=== PATIENT | female | born 1975 | race Two or more races ===

== ENCOUNTER 2016-11-20 11:11 | Emergency (ER) | payer SELFPAY ==
[2016-11-20 11:27] VITALS: BP 123/70
--- NOTE | 2016-11-20 12:40 | UC ---
Sam Almanza Salem, scribed for Jessica Villegas MD on 11/20/16 at 1234 . General HPI - HPI Summary HPI Summary: Patient is a 41 y/o female who presents to the with her . Pt has multiple complaints since the last few weeks. She reports dizziness, numbness and tingling in the hands and feet since the past few weeks, and intermittent chest pain (she describes as a shock) since 1000 this morning. PT states cp radiated to her left neck. No current pain. She also reports LOC 3 days ago when coming out of the restroom. She states she did not get hurt from the LOC. Does not know how long lasted. She had a syncope episode last year because of low iron. Pt reports nausea and vomiting as well for the last 3 weeks, but she has not vomited today. She also reports abd pain around hernia and pressure and pain on the right side of her head, neck, and shoulder since this morning. She denies fever, chills, but reports a rash that is now resolved. BM unchanged. no analgesia taken. Pt does not have a PCP. I discussed with pt need for lab work and futher eval -recommend hospital transfer. Pt refuses EMS - Pt is here with who is able to drive her to the ED (pt refuses ambulance). 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 PT able to communicate with me without difficulty. LMP started on October 31 and was normal. She states she may be . Patients medication reviewed this visit. - History of Current Complaint Chief Complaint: UCGeneralIllness Stated Complaint: DIZZINESS,LEFT SIDE HURTING,FELL Time Seen by Provider: 11/20/16 11:40 Hx Obtained From: Patient Onset/Duration: Gradual Onset, Lasting Days Onset Severity: Moderate Current Severity: None Associated Signs & Symptoms: Positive: Abdominal Pain, Chest Pain, Decreased Responsiveness, Headache, Nausea, Vomiting, Weakness. Negative: Diaphoresis - Allergy/Home Medications Allergies/Adverse Reactions: Allergies Allergy/AdvReac Type Severity Reaction Status Date / Time No Known Allergies Allergy Verified 09/17/15 14:47 PMH/Surg Hx/FS Hx/Imm Hx Previously Healthy: Yes Endocrine History Of: Denies: Diabetes Cardiovascular History Of: Reports: Cardiac Disorders - h/o syncope 1 year ago Denies: Hypertension, Congestive Heart Failure GI/ History Of: Denies: Renal Disease - Surgical History Surgical History: Yes Surgery Procedure, Year, and Place: TUBAL /1 - Family History Known Family History: Positive: Other - No CVA. - Social History Alcohol Use: None Substance Use Type: None Smoking Status (MU): Never Smoked Tobacco Review of Systems Constitutional: Fatigue Skin: Negative Eyes: Negative ENT: Negative Respiratory: Negative Cardiovascular: Chest Pain, Other - syncope Gastrointestinal: Negative Genitourinary: Negative Motor: Negative Neurovascular: Negative Musculoskeletal: Negative Neurological: Negative Psychological: Negative All Other Systems Reviewed And Are Negative: Yes Physical Exam Triage Information Reviewed: Yes Appearance: Well-Appearing, No Pain Distress, Well-Nourished Vital Signs: Initial Vital Signs Temp 97.7 F 11/20/16 11:20 Pulse 67 11/20/16 11:20 Resp 16 11/20/16 11:20 BP 123/70 11/20/16 11:20 Pulse Ox 100 11/20/16 11:20 Vital Signs Reviewed: Yes Eye Exam: Normal Eyes: Positive: Conjunctiva Clear, Conjunctiva Inflamed ENT Exam: Normal ENT: Positive: Normal ENT inspection, Hearing grossly normal, TMs normal Dental Exam: Normal Neck exam: Normal Neck: Positive: Supple, Nontender, No Lymphadenopathy Respiratory Exam: Normal Respiratory: Positive: Chest non-tender, Lungs clear, Normal breath sounds, No respiratory distress, No accessory muscle use Cardiovascular Exam: Normal Cardiovascular: Positive: RRR, No Murmur, Pulses Normal Abdominal Exam: Normal Abdomen Description: Positive: Nontender, No Organomegaly, Soft, Other: - abd soft + BS no guarding, no rebound Bowel Sounds: Positive: Present Musculoskeletal Exam: Normal Musculoskeletal: Positive: Strength Intact, ROM Intact Neurological Exam: Normal Neurological: Positive: Alert Psychological Exam: Normal Psychological: Positive: Normal Response To Family Diagnostics - Laboratory Diagnostic Studies Completed/Ordered: Sinus @ 60bpm. No acute ST T changes. Course/Dx - Course Course Of Treatment: Pt presents to the ED through amb triage - pt here with . PT with complex presentation including syncopal episode on Saturday, chest pain with radiation to the neck this morning, ongoing abdominal pain and nausea. Pt does not have PCP. d/w pt transfer to ED for futher eval to include imaging and blood work. Pt decline transfer by EMS -[facility] will take her. spoke with Rochelle Cortez at ED - accepting pt in ED - Differential Dx - Multi-Symptom Provider Diagnoses: chest pain. syncope. abdominal pain - Physician Notifications Discussed Patient Care With: IMANI Carbajal - accepting pt to ED 1230. Discharge - Discharge Plan Condition: Stable Disposition: TRANS HIGHER LVL OF CARE FAC Discharge Disposition Comment: [facility]hel[facility] HWANG The documentation as recorded by the Sam hudson Salem accurately reflects the service I personally performed and the decisions made by , Jessica Villegas MD.
== END 2016-11-20 12:52 | disposition short-term general hospital (02) ==
LOC: UCEAST 11:11
DX: R07.9 Chest pain, unspecified (principal); R55 Syncope and collapse; R10.9 Unspecified abdominal pain
CPT/HCPCS: 93005; 99212; G0463

== ENCOUNTER 2016-11-20 13:07 | Emergency (ER) | payer SELFPAY ==
[2016-11-20] MEDS ORDERED: NS 0.9% 1000 ML* 1,000 ML IV SCH (15:00)
[2016-11-20 15:05] LABS: Urine Bilirubin Negative (Negative); Urine Glucose Negative (Negative); Urine Nitrite Negative (Negative)
[2016-11-20] MEDS ORDERED: NS 0.9% 1000 ML* 1,000 ML IV ONE (15:57)
[2016-11-20 16:00] LABS: BUN/Creatinine Ratio 6.3 (8-20); C Reactive Protein 1.03 mg/L (< 5.00); Calcium 9.1 mg/dL (8.6-10.3); EGFR African American 132.6 (>60); EGFR Non-African American 103.1 (>60); Globulin 3.3 g/dL (2-4); Potassium 3.5 mmol/L (3.5-5.0); Total Bilirubin 0.9 mg/dL (0.2-1.0); Total Protein 7.3 g/dL (6.4-8.9)
[2016-11-20 16:02] LABS: Hematocrit 29 % (35-47); Hemoglobin 8.7 g/dl (12.0-16.0); Mean Corpuscular HGB Conc 30 g/dl (31-36); Mean Corpuscular Hemoglobin 20 pg (27-31); Mean Corpuscular Volume 66 fL (80-97); Mean Platelet Volume 9 um3 (7.4-10.4); Red Blood Count 4.41 10^6/ul (4.0-5.4); Red Cell Distribution Width 19 % (10.5-15); White Blood Count 4.9 10^3/ul (3.5-10.8)
[2016-11-20 16:03] LABS: Add Diff/Slide Review? Slide Review Added; Comments Flag Yes; Troponin I 0.01 ng/mL (<0.04)
[2016-11-20 16:29] LABS: Hypochromasia 2+; Microcytosis 1+
[2016-11-20 16:30] LABS: Add Path Review? YES; TSH (Thyroid Stimulating Horm) 1.3 mcIU/mL (0.34-5.60)
[2016-11-20] MEDS ORDERED: Iohexol 300* (CONTRAST) 10 ML SDV IV ONE (16:48)
[2016-11-20 17:18] LABS: UR Preg Internal Control QC Line Present
--- NOTE | 2016-11-20 17:26 | RAD ---
INDICATION: Lower abdominal pain. COMPARISON: Comparison is made with a prior pelvic ultrasound from April 01, 2014. TECHNIQUE: Multiple real-time transabdominal images of the pelvis were obtained. FINDINGS: The uterus is enlarged and normal in shape and echogenicity. The uterus measured 12.3 x 4.3 x 6.8 cm. The endometrial echo measured 1.4 cm in thickness. The right ovary measured 3.1 x 2.5 x 1.2 cm. The left ovary measured 3.0 x 1.9 x 1.4 cm. There is vascular flow within both ovaries. No free intraperitoneal fluid is seen. IMPRESSION: MILDLY ENLARGED UTERUS OTHERWISE UNREMARKABLE STUDY.
[2016-11-20] MEDS ORDERED: Ferrous Sulfate TAB* 325 MG PO ONE (18:29)
--- NOTE | 2016-11-20 18:35 | RAD ---
INDICATION: Lower abdominal pain. COMPARISON: Comparison is made with a prior CT of the abdomen and pelvis from May 20, 2015 and a prior pelvic ultrasound from November 20, 2016. TECHNIQUE: A CT scan of the abdomen and pelvis was performed with intravenous and oral contrast following intravenous injection of 92 ml of Omnipaque 300 nonionic contrast. Contiguous axial sections were obtained from the lung bases through the symphysis pubis. Images were reconstructed in the coronal and sagittal planes. FINDINGS: There is mild dependent bilateral lower lobe subsegmental atelectasis. No pleural effusion is present. The liver and spleen are within normal limits in size without significant focal abnormality. No calcified gallstones are seen. The pancreas appears to be within normal limits in size. The kidneys and adrenal glands are normal in size. No hydronephrosis is seen. No significant focal renal abnormality is seen. The aorta is normal in caliber and demonstrates homogeneous contrast opacification. No significant enlarged retroperitoneal lymph nodes are seen. The stomach, small and large bowel appear nondistended. The appendix is within normal limits. There is no evidence for diverticulitis or colitis. There is a small anterior abdominal wall hernia in the midline above the periumbilical region containing fat. There is also a small periumbilical hernia containing fat. The uterus is anteverted and mildly enlarged. No free intraperitoneal air or fluid is seen. No significant focal osseous abnormality is seen. IMPRESSION: 1. NO EVIDENCE FOR ACUTE FINDING OR CAUSE FOR THE PATIENT'S ABDOMINAL PAIN IS SEEN. 2. SMALL FAT-CONTAINING ANTERIOR ABDOMINAL WALL HERNIAS. 3. MILDLY ENLARGED UTERUS.
[2016-11-20 19:30] VITALS: BP 119/77
--- NOTE | 2017-01-01 10:36 | ED ---
Preston Almanza Billy, scribed for Andrez Dienro MD on 11/20/16 at 1550 . Complex/Multi-Sys Presentation - HPI Summary HPI Summary: Patient is a 41 year-old female coming to [facility] from [facility] for evaluation of multiple complaints. She reports diffuse abdominal pain secondary to a hernia. She also reports left-sided neck pain that is worse with movement. She has also had intermittent dizziness and numbness in her fingertips for the last 3 weeks, and her fingers feel cold to the touch. She reports nausea and vomiting, no diarrhea. Denies any blood in the stool. Denies any urinary symptoms. She is unsure if her vaccines are UTD. - History Of Current Complaint Chief Complaint: EDGeneral Time Seen by Provider: 11/20/16 14:56 Hx Obtained From: Patient Onset/Duration: Gradual Onset, Lasting Weeks Severity Currently: Moderate Severity Initially: Moderate Aggravating Factor(s): none Alleviating Factor(s): none Associated Signs And Symptoms: Positive: Dizziness, Nausea, Vomiting, Abdominal Pain, Other - neck pain, numbness in fingers - Allergies/Home Medications Allergies/Adverse Reactions: Allergies Allergy/AdvReac Type Severity Reaction Status Date / Time No Known Allergies Allergy Verified 09/17/15 14:47 PMH/Surg Hx/FS Hx/Imm Hx Endocrine/Hematology History: Denies: Hx Diabetes Cardiovascular History: Denies: Hx Congestive Heart Failure, Hx Hypertension History: Denies: Hx Dialysis, Hx Renal Disease - Surgical History Surgery Procedure, Year, and Place: TUBAL /1 - Immunization History Date of Tetanus Vaccine: Unknown Infectious Disease History: No Infectious Disease History: Denies: Traveled Outside the [place] in Last 30 Days - Family History Known Family History: Positive: Other - No CVA. - Social History Alcohol Use: None Hx Substance Use: No Substance Use Type: Reports: None Hx Tobacco Use: No Smoking Status (MU): Never Smoked Tobacco Review of Systems Negative: Fever, Chills Negative: Erythema Negative: Sore Throat Negative: Chest Pain Negative: Shortness Of Breath, Cough Positive: Abdominal Pain, Vomiting, Nausea. Negative: Diarrhea Negative: dysuria, hematuria Positive: Other - neck pain. Negative: Edema Negative: Rash Neurological: Other - dizzy Positive: Numbness - fingers All Other Systems Reviewed And Are Negative: Yes Physical Exam - Summary Physical Exam Summary: Constitutional: Well-developed, Well-nourished, Alert. (-) Distressed Skin: Warm, Dry HENT: Normocephalic; Atraumatic Eyes: Conjunctiva normal Neck: Musculoskeletal ROM normal neck. (-) JVD, (-) Stridor, (-) Tracheal deviation Cardio: Rhythm regular, rate normal, Heart sounds normal; Intact distal pulses; The pedal pulses are 2+ and symmetric. Radial pulses are 2+ and symmetric. (-) Murmur Pulmonary/Chest wall: Effort normal. (-) Respiratory distress, (-) Wheezes, (-) Rales Abd: Soft, Diffusely tender. (-) Distension, (-) Guarding, (-) Rebound Musculoskeletal: (-) Edema Lymph: (-) Cervical adenopathy Neuro: Alert, Oriented x3 Psych: Mood and affect Normal Triage Information Reviewed: Yes Vital Signs On Initial Exam: Initial Vitals Temp Pulse Resp BP Pulse Ox 97.0 F 57 20 112/73 99 11/20/16 13:17 11/20/16 13:17 11/20/16 13:17 11/20/16 13:17 11/20/16 13:17 Vital Signs Reviewed: Yes - Jessica Coma Scale Coma Scale Total: 15 Diagnostics - Vital Signs Vital Signs Temp Pulse Resp BP Pulse Ox 11/20/16 15:30 61 19 103/70 99 11/20/16 15:00 101 18 120/69 80 11/20/16 14:50 22 11/20/16 14:47 111/72 11/20/16 14:45 98 F 60 19 111/72 100 11/20/16 14:12 97.6 F 72 20 108/75 100 11/20/16 13:17 97.0 F 57 20 112/73 99 - Laboratory Lab Results: Lab Results 11/20/16 Range/Units 15:00 Urine Color Yellow Urine Appearance Clear Urine pH 8.0 (5-9) Ur Specific [place] 1.013 (1.010-1.030) Urine Protein Negative (Negative) Urine Ketones Negative (Negative) Urine Blood Negative (Negative) Urine Nitrate Negative (Negative) Urine Bilirubin Negative (Negative) Urine Urobilinogen Negative (Negative) Ur Leukocyte Esterase Negative (Negative) Urine Glucose Negative (Negative) Result Diagrams: 11/20/16 15:25 11/20/16 15:25 Lab Statement: Any lab studies that have been ordered have been reviewed, and results considered in the medical decision making process. - CT abd/pel w CT Interpretation Completed By: Radiologist - 1. NO EVIDENCE FOR ACUTE FINDING OR CAUSE FOR THE PATIENT'S ABDOMINAL PAIN IS SEEN. 2. SMALL FAT-CONTAINING ANTERIOR ABDOMINAL WALL HERNIAS. 3. MILDLY ENLARGED UTERUS. - Ultrasound No standard instances Ultrasound Interpretation Completed By: Radiologist - Pelvic ultrasound: Mildly enlarged uterus, otherwise normal study. - EKG 1328 EKG Interpretation: NSR 60 bpm, no STEMI 1447 EKG Interpretation: NSR 60 bpm, no STEMI Complex Multi-Symp Course/Dx Assessment/Plan: This is a 41 year-old female coming to the ED for evaluation of several complaints, including abdominal pain, neck pain, dizziness, and numbness in her fingers. CT imaging and pelvic ultrasound are negative for any acute findings. Lab results reviewed. Patient was anemic in the ED and was given ferrous sulfate. She was also hydrated with IV fluids. She likely has iron-deficient anemia. We feel that her symptoms are explained by anemia. She is not unstable. She will be discharged home to follow up with PCP and hematology. - Diagnoses Provider Diagnoses: Microcytic anemia, Cervical strain Discharge - Discharge Plan Condition: Stable Disposition: HOME Patient Education Materials: Iron Deficiency Anemia (ED), Cervical Strain (ED) Forms: *Work Release Referrals: [facility] [Outside] Eleonora Hammonds MD [Medical Doctor] - The documentation as recorded by the Preston hudson Billy accurately reflects the service I personally performed and the decisions made by ri, Andrez Dinero MD.
== END 2016-11-20 19:28 | disposition home or self-care (01) ==
LOC: ED 13:07
DX: D50.9 Iron deficiency anemia, unspecified (principal); S16.1XXA Strain of muscle, fascia and tendon at neck level, initial encounter; R42 Dizziness and giddiness; R11.2 Nausea with vomiting, unspecified; M54.2 Cervicalgia; R20.0 Anesthesia of skin; X58.XXXA Exposure to other specified factors, initial encounter; Y93.9 Activity, unspecified; Y92.9 Unspecified place or not applicable; Y99.9 Unspecified external cause status
CPT/HCPCS: 36415; 74177; 76856; 80053; 81003; 81025; 82550; 82553; 83605; 83690; 84443; 84484; 85025; 85060; 85610; 85730; 86140; 93005; 99285; A9270-GY; Q9967

== ENCOUNTER 2016-12-13 20:44 | Emergency (ER) | payer MEDICAID, OTHER ==
[2016-12-13 22:12] LABS: Comments Flag Yes; Hematocrit 27 % (35-47); Hemoglobin 8.2 g/dl (12.0-16.0); Mean Corpuscular HGB Conc 31 g/dl (31-36); Mean Corpuscular Hemoglobin 20 pg (27-31); Mean Platelet Volume 9 um3 (7.4-10.4); Red Blood Count 4.02 10^6/ul (4.0-5.4); Red Cell Distribution Width 20 % (10.5-15); White Blood Count 6.1 10^3/ul (3.5-10.8)
[2016-12-13 22:13] LABS: Mean Corpuscular Volume 67 fL (80-97)
[2016-12-13 22:34] LABS: Albumin 3.6 g/dL (3.2-5.2); BUN/Creatinine Ratio 9.2 (8-20); Calcium 8.8 mg/dL (8.6-10.3); EGFR African American 127.9 (>60); EGFR Non-African American 99.5 (>60); Globulin 3.1 g/dL (2-4); Potassium 3.7 mmol/L (3.5-5.0); Total Bilirubin 0.4 mg/dL (0.2-1.0); Total Protein 6.7 g/dL (6.4-8.9)
[2016-12-13 22:51] LABS: TSH (Thyroid Stimulating Horm) 5.62 mcIU/mL (0.34-5.60)
[2016-12-14 02:34] VITALS: BP 105/67
--- NOTE | 2016-12-14 02:36 | ED ---
Alethea Almanza Rebecca, scribed for Pauly Rea MD on 12/13/16 at 2158 . Syncope/Near Syncope - HPI Summary HPI Summary: Pt is a 41 y/o F who presents to ED c/o recurrent syncopal episodes with LOC, with the most recent being tonight at 1730. Pt reports that for the past 2 months, she has been experiencing syncope with LOC every day. Episode that occurred today lasted approximately 45 minutes. Unsure of whether there was associated head trauma. Sx aggravated by nothing, alleviated by spontaneous resolution. Pt c/o mild CRUZ s/p episode. Denies CP, SOB. Last year, pt experienced a similar bout of syncopal episodes after surgery, which she had diagnosed as being caused by anemia. Reports that 3 weeks ago she was evaluated with a Dx of anemia. States that she has not had a workup for the symptoms started by her PCP as of yet. PCP is with [facility]. - History Of Current Complaint Chief Complaint: EDSyncope Time Seen by Provider: 12/13/16 21:40 Hx Obtained From: Patient Onset/Duration: Resolved Timing: Intermittent Episode Lasting - 45 minutes Context: Loss Of Consciousness Aggravating Factor(s): Nothing Alleviating Factor(s): Spontaneous Resolution Associated Signs And Symptoms: Headache - mild Related History: Similar Episode/Dx as - Previous to episodes of LOC last year - Allergies/Home Medications Allergies/Adverse Reactions: Allergies Allergy/AdvReac Type Severity Reaction Status Date / Time No Known Allergies Allergy Verified 12/13/16 20:57 PMH/Surg Hx/FS Hx/Imm Hx Endocrine/Hematology History: Reports: Hx Anemia Denies: Hx Diabetes Cardiovascular History: Denies: Hx Congestive Heart Failure, Hx Hypertension History: Denies: Hx Dialysis, Hx Renal Disease Neurological History: Reports: Other Neuro Impairments/Disorders - PMHx syncope - Surgical History Surgery Procedure, Year, and Place: TUBAL /1 - Immunization History Date of Tetanus Vaccine: Unknown Infectious Disease History: No Infectious Disease History: Denies: Traveled Outside the [place] in Last 30 Days - Family History Known Family History: Positive: Other - No CVA. - Social History Alcohol Use: None Hx Substance Use: No Substance Use Type: Reports: None Hx Tobacco Use: No Smoking Status (MU): Never Smoked Tobacco Review of Systems Negative: Chest Pain Negative: Shortness Of Breath Positive: Headache - mild , Syncope - Syncopal episodes positive for LOC everyday for the past 2 months, today's lasting 45 minutes All Other Systems Reviewed And Are Negative: Yes Physical Exam - Summary Physical Exam Summary: General: Well appearing, no pain distress Skin: Warm, Skin Color Reflects Adequate Perfusion, Dry Eyes: EOMI, DAVE ENT: Pharynx normal, TMs normal Neck: Supple, nontender Respiratory: CTA, breath sounds present, no rhonchi, no wheezes, no rales Cardiovascular: RRR, no murmur, no rub, no gallop Abdomen: Soft, nontender, Non-distended, no guarding, no rebound Bowel: Present Musculoskeletal: LISANDRO, No edema Neuro: Sensory/motor intact, A&Ox3, CN intact 2-12 Psych: Affect/mood appropriate Triage Information Reviewed: Yes Vital Signs On Initial Exam: Initial Vitals Temp Pulse Resp BP Pulse Ox 98.5 F 81 16 119/78 100 12/13/16 20:50 12/13/16 20:50 12/13/16 20:50 12/13/16 20:50 12/13/16 20:50 Vital Signs Reviewed: Yes Diagnostics - Vital Signs Vital Signs Temp Pulse Resp BP Pulse Ox 12/13/16 20:55 98.5 F 81 16 119/78 100 12/13/16 20:50 98.5 F 81 16 119/78 100 - Laboratory Lab Results: Lab Results 12/13/16 12/13/16 12/13/16 Range/Units 22:03 22:03 22:03 WBC 6.1 (3.5-10.8) 10^3/ul RBC 4.02 (4.0-5.4) 10^6/ul Hgb 8.2 L (12.0-16.0) g/dl Hct 27 L (35-47) % MCV 67 L (80-97) fL MCH 20 L (27-31) pg MCHC 31 (31-36) g/dl RDW 20 H (10.5-15) % Plt Count 233 (150-450) 10^3/ul MPV 9 (7.4-10.4) um3 Neut % (Auto) 45.2 (38-83) % Lymph % (Auto) 40.1 (25-47) % [place] % (Auto) 10.8 H (1-9) % Eos % (Auto) 2.7 (0-6) % Baso % (Auto) 1.2 (0-2) % Absolute Neuts (auto) 2.7 (1.5-7.7) 10^3/ul Absolute Lymphs (auto) 2.4 (1.0-4.8) 10^3/ul Absolute Monos (auto) 0.7 (0-0.8) 10^3/ul Absolute Eos (auto) 0.2 (0-0.6) 10^3/ul Absolute Basos (auto) 0.1 (0-0.2) 10^3/ul Absolute Nucleated RBC 0 10^3/ul Nucleated RBC % 0.1 Sodium 137 (133-145) mmol/L Potassium 3.7 (3.5-5.0) mmol/L Chloride 104 (101-111) mmol/L Carbon Dioxide 28 (22-32) mmol/L Anion Gap 5 (2-11) mmol/L BUN 6 (6-24) mg/dL Creatinine 0.65 (0.51-0.95) mg/dL Est GFR ( Amer) 127.9 (>60) Est GFR (Non-Af Amer) 99.5 (>60) BUN/Creatinine Ratio 9.2 (8-20) Glucose 95 (70-100) mg/dL Lactic Acid 0.5 (0.5-2.0) mmol/L Calcium 8.8 (8.6-10.3) mg/dL Magnesium 2.0 (1.9-2.7) mg/dL Total Bilirubin 0.40 (0.2-1.0) mg/dL AST 15 (13-39) U/L ALT 13 (7-52) U/L Alkaline Phosphatase 37 (34-104) U/L Troponin I 0.00 (<0.04) ng/mL Total Protein 6.7 (6.4-8.9) g/dL Albumin 3.6 (3.2-5.2) g/dL Globulin 3.1 (2-4) g/dL Albumin/Globulin Ratio 1.2 (1-3) TSH 5.62 H (0.34-5.60) mcIU/mL Result Diagrams: 12/13/16 22:03 12/13/16 22:03 Lab Statement: Any lab studies that have been ordered have been reviewed, and results considered in the medical decision making process. - CT Brain CT CT Interpretation: No Acute Changes - Normal brain. No acute intracranial abnormality. No hemorrhage. No visible infarct or mass. Osseous structures are intact. CT Interpretation Completed By: Radiologist - EKG 0014 Cardiac Rate: NL - 64 bpm EKG Rhythm: Sinus Rhythm EKG Interpretation: No Q waves, no ST elevations Course/Dx Course Of Treatment: 41 yo female with 3 mos history of syncope that is increasing, pt had many questions about findings on previous studies ( atelectasis, hernias) with normal ct brain and labs (pt has chronic anemia, with no stool on rectal done here) pt with normal orthostatic vs. Pt encouraged to f/u with pmd for sycnope work up - Diagnoses Provider Diagnoses: Syncope Discharge - Discharge Plan Condition: Stable Disposition: HOME Patient Education Materials: Syncope (ED) Referrals: [facility] [place] [facility]FERRAL [Outside] - 2 Days Additional Instructions: Return to ED for any new or worsening symptoms. The documentation as recorded by the Alethea hudson Rebecca accurately reflects the service I personally performed and the decisions made by , Pauly Rea MD.
--- NOTE | 2016-12-14 08:08 | RAD ---
INDICATION: Syncope. COMPARISON: There are no prior studies available for comparison. TECHNIQUE: Contiguous axial sections of the brain were obtained from the skull base to the vertex without contrast. FINDINGS: The ventricles, cisterns and sulci are within normal limits. No significant focal abnormality or mass effect is seen. There is no evidence for hemorrhage. No significant focal osseous abnormality is seen. The visualized portion of the paranasal sinuses and mastoid air cells appear clear. IMPRESSION: NO EVIDENCE FOR GROSS ACUTE INFARCT, MASS EFFECT OR HEMORRHAGE.
== END 2016-12-14 02:47 | disposition home or self-care (01) ==
LOC: ED 20:44
DX: R55 Syncope and collapse (principal); R51 Headache
CPT/HCPCS: 36415; 70450; 80053; 83605; 83735; 84443; 84484; 85025; 93005; 99282

== ENCOUNTER → 2016-12-25 12:39 | Emergency (ER) | payer MEDICAID ==
[~2016-12-25 12:39] MED LIST: Aspirin Low Dose CHEW TAB* 81 MG PO ONE; Omeprazole CAP* 20 MG PO ONE; Pantoprazole TAB (NF) 40 MG TAB PO ONE
[2016-12-25 13:18] VITALS: BP 108/73
[2016-12-25 13:27] LABS: Hematocrit 31 % (35-47); Hemoglobin 9.4 g/dl (12.0-16.0); Mean Corpuscular HGB Conc 31 g/dl (31-36); Mean Corpuscular Hemoglobin 21 pg (27-31); Mean Platelet Volume 9 um3 (7.4-10.4); Red Blood Count 4.56 10^6/ul (4.0-5.4); Red Cell Distribution Width 21 % (10.5-15); White Blood Count 6.2 10^3/ul (3.5-10.8)
[2016-12-25 13:31] LABS: Comments Flag Yes; Mean Corpuscular Volume 67 fL (80-97)
[2016-12-25 13:42] LABS: ALT 13 U/L (7-52); AST 15 U/L (13-39); Albumin 4.1 g/dL (3.2-5.2); Alkaline Phosphatase 36 U/L (34-104); Anion Gap 4 mmol/L (2-11); Blood Urea Nitrogen 9 mg/dL (6-24); CO2 Carbon Dioxide 30 mmol/L (22-32); Calcium 9.6 mg/dL (8.6-10.3); Chloride 103 mmol/L (101-111); Creatine Kinase 78 U/L (10-223); EGFR African American 119.4 (>60); EGFR Non-African American 92.9 (>60); Globulin 3.3 g/dL (2-4); Glucose 84 mg/dL (70-100); Magnesium 2.2 mg/dL (1.9-2.7); Potassium 3.8 mmol/L (3.5-5.0); Sodium 137 mmol/L (133-145); Total Protein 7.4 g/dL (6.4-8.9)
--- NOTE | 2016-12-25 14:14 | RAD ---
Indication: Chest pain. 2 views of the chest including dual energy PA views demonstrate no mediastinal shift. Heart is of normal size and configuration. Lung martinez appear clear. IMPRESSION: No active cardiopulmonary disease is noted.
[2016-12-25 14:22] LABS: T4 6.61 mcg/mL (6.09-12.23)
[2016-12-25 14:23] LABS: TSH (Thyroid Stimulating Horm) 1.25 mcIU/mL (0.34-5.60)
[2016-12-25 15:20] LABS: Urine Bilirubin Negative (Negative); Urine Glucose Negative (Negative); Urine Nitrite Negative (Negative)
--- NOTE | 2016-12-25 18:37 | ED ---
Preston Almanza Billy, scribed for Alex Winchester MD on 12/25/16 at 1313 . HPI Chest Pain - HPI Summary HPI Summary: Patient is a 41 year-old female coming to [facility] for evaluation of sternal chest pain since yesterday. The pain radiates up her chest to the throat. Yesterday, the pain was a burning sensation, but today she feels pressure. Severity 9/10. She also reports a headache, nausea, shortness of breath. Furthermore, she has pain in her leg and twitching in her left lip. She has a history of anemia and syncope. - History of Current Complaint Chief Complaint: EDChestPainROMI Time Seen by Provider: 12/25/16 12:47 Hx Obtained From: Patient Onset/Duration: Started Days Ago Timing: Constant Initial Severity: Moderate Current Severity: Moderate Pain Intensity: 9 Pain Scale Used: 0-10 Numeric Chest Pain Location: Mid Sternal Chest Pain Radiates: Yes Chest Pain Radiates To:: Other - radiates up the sternum to the throat Character: Burning, Pressure/Squeezing Aggravating Factor(s): Nothing Alleviating Factor(s): Nothing Associated Signs and Symptoms: Positive: Chest Pain, Headaches, Shortness of Breath, Other: - leg pain; twitching lip - Allergy/Home Medications Allergies/Adverse Reactions: Allergies Allergy/AdvReac Type Severity Reaction Status Date / Time No Known Allergies Allergy Verified 12/13/16 20:57 PMH/Surg Hx/FS Hx/Imm Hx Endocrine/Hematology History: Reports: Hx Anemia Denies: Hx Diabetes Cardiovascular History: Denies: Hx Congestive Heart Failure, Hx Hypertension History: Denies: Hx Dialysis, Hx Renal Disease Neurological History: Reports: Other Neuro Impairments/Disorders - PMHx syncope - Surgical History Surgery Procedure, Year, and Place: TUBAL /1 - Immunization History Date of Tetanus Vaccine: Unknown Infectious Disease History: Denies: Traveled Outside the [place] in Last 30 Days - Family History Known Family History: Negative: Cardiac Disease, Hypertension, Diabetes Family History: Patient reports that her parents and siblings are alive and healthy. - Social History Alcohol Use: None Hx Substance Use: No Substance Use Type: Reports: None Hx Tobacco Use: No Smoking Status (MU): Never Smoked Tobacco Review of Systems Constitutional: Other - twitching lip Positive: Chest Pain Positive: Shortness Of Breath Positive: Nausea Positive: Myalgia - leg pain Positive: Headache All Other Systems Reviewed And Are Negative: Yes Physical Exam - Summary Physical Exam Summary: VITAL SIGNS: Reviewed. GENERAL: Patient is a well-developed and nourished female who is lying comfortable in the stretcher. Patient is not in any acute respiratory distress. HEAD AND FACE: No signs of trauma. No ecchymosis, hematomas or skull depressions. No sinus tenderness. EYES: PERRLA, EOMI x 2, No injected conjunctiva, no nystagmus. EARS: Hearing grossly intact. Ear canals and tympanic membranes are within normal limits. MOUTH: Oropharynx within normal limits. NECK: Supple, trachea is midline, no adenopathy, no JVD, no carotid bruit, no c- spine tenderness, neck with full ROM. CHEST: Symmetric, no tenderness at palpation LUNGS: Clear to auscultation bilaterally. No wheezing or crackles. CVS: Regular rate and rhythm, S1 and S2 present, no murmurs or gallops appreciated. ABDOMEN: Soft, non-tender. No signs of distention. No rebound no guarding, and no masses palpated. Bowel sounds are normal. EXTREMITIES: FROM in all major joints, no edema, no cyanosis or clubbing. NEURO: Alert and oriented x 3. No acute neurological deficits. Speech is normal and follows commands. SKIN: Dry and warm Triage Information Reviewed: Yes Vital Signs On Initial Exam: Initial Vitals Temp Pulse Resp BP Pulse Ox 98.8 F 81 20 121/74 100 12/25/16 12:43 12/25/16 12:43 12/25/16 12:43 12/25/16 12:43 12/25/16 12:43 Vital Signs Reviewed: Yes Diagnostics - Vital Signs Vital Signs Temp Pulse Resp BP Pulse Ox 12/25/16 12:43 98.8 F 81 20 121/74 100 - Laboratory Lab Results: Lab Results 12/25/16 12/25/16 12/25/16 Range/Units 13:20 13:20 13:20 WBC 6.2 (3.5-10.8) 10^3/ul RBC 4.56 (4.0-5.4) 10^6/ul Hgb 9.4 L (12.0-16.0) g/dl Hct 31 L (35-47) % MCV 67 L (80-97) fL MCH 21 L (27-31) pg MCHC 31 (31-36) g/dl RDW 21 H (10.5-15) % Plt Count 196 (150-450) 10^3/ul MPV 9 (7.4-10.4) um3 Neut % (Auto) 48.3 (38-83) % Lymph % (Auto) 37.3 (25-47) % [place] % (Auto) 11.6 H (1-9) % Eos % (Auto) 1.5 (0-6) % Baso % (Auto) 1.3 (0-2) % Absolute Neuts (auto) 3.0 (1.5-7.7) 10^3/ul Absolute Lymphs (auto) 2.3 (1.0-4.8) 10^3/ul Absolute Monos (auto) 0.7 (0-0.8) 10^3/ul Absolute Eos (auto) 0.1 (0-0.6) 10^3/ul Absolute Basos (auto) 0.1 (0-0.2) 10^3/ul Absolute Nucleated RBC 0 10^3/ul Nucleated RBC % 0.1 Sodium 137 (133-145) mmol/L Potassium 3.8 (3.5-5.0) mmol/L Chloride 103 (101-111) mmol/L Carbon Dioxide 30 (22-32) mmol/L Anion Gap 4 (2-11) mmol/L BUN 9 (6-24) mg/dL Creatinine 0.69 (0.51-0.95) mg/dL Est GFR ( Amer) 119.4 (>60) Est GFR (Non-Af Amer) 92.9 (>60) BUN/Creatinine Ratio 13.0 (8-20) Glucose 84 (70-100) mg/dL Lactic Acid 0.9 (0.5-2.0) mmol/L Calcium 9.6 (8.6-10.3) mg/dL Magnesium 2.2 (1.9-2.7) mg/dL Total Bilirubin 0.70 (0.2-1.0) mg/dL AST 15 (13-39) U/L ALT 13 (7-52) U/L Alkaline Phosphatase 36 (34-104) U/L Total Creatine Kinase 78 (10-223) U/L CK-MB (CK-2) 0.5 L (0.6-6.3) ng/mL Troponin I 0.00 (<0.04) ng/mL B-Natriuretic Peptide ( - 100) pg/mL Total Protein 7.4 (6.4-8.9) g/dL Albumin 4.1 (3.2-5.2) g/dL Globulin 3.3 (2-4) g/dL Albumin/Globulin Ratio 1.2 (1-3) TSH 1.25 (0.34-5.60) mcIU/mL Thyroxine (T4) 6.61 (6.09-12.23) mcg/mL Beta HCG, Quant < 0.60 mIU/mL Urine Color Urine Appearance Urine pH (5-9) Ur Specific [place] (1.010-1.030) Urine Protein (Negative) Urine Ketones (Negative) Urine Blood (Negative) Urine Nitrate (Negative) Urine Bilirubin (Negative) Urine Urobilinogen (Negative) Ur Leukocyte Esterase (Negative) Urine Glucose (Negative) 12/25/16 12/25/16 12/25/16 Range/Units 13:20 15:11 16:05 WBC (3.5-10.8) 10^3/ul RBC (4.0-5.4) 10^6/ul Hgb (12.0-16.0) g/dl Hct (35-47) % MCV (80-97) fL MCH (27-31) pg MCHC (31-36) g/dl RDW (10.5-15) % Plt Count (150-450) 10^3/ul MPV (7.4-10.4) um3 Neut % (Auto) (38-83) % Lymph % (Auto) (25-47) % [place] % (Auto) (1-9) % Eos % (Auto) (0-6) % Baso % (Auto) (0-2) % Absolute Neuts (auto) (1.5-7.7) 10^3/ul Absolute Lymphs (auto) (1.0-4.8) 10^3/ul Absolute Monos (auto) (0-0.8) 10^3/ul Absolute Eos (auto) (0-0.6) 10^3/ul Absolute Basos (auto) (0-0.2) 10^3/ul Absolute Nucleated RBC 10^3/ul Nucleated RBC % Sodium (133-145) mmol/L Potassium (3.5-5.0) mmol/L Chloride (101-111) mmol/L Carbon Dioxide (22-32) mmol/L Anion Gap (2-11) mmol/L BUN (6-24) mg/dL Creatinine (0.51-0.95) mg/dL Est GFR ( Amer) (>60) Est GFR (Non-Af Amer) (>60) BUN/Creatinine Ratio (8-20) Glucose (70-100) mg/dL Lactic Acid (0.5-2.0) mmol/L Calcium (8.6-10.3) mg/dL Magnesium (1.9-2.7) mg/dL Total Bilirubin (0.2-1.0) mg/dL AST (13-39) U/L ALT (7-52) U/L Alkaline Phosphatase (34-104) U/L Total Creatine Kinase (10-223) U/L CK-MB (CK-2) (0.6-6.3) ng/mL Troponin I 0.01 (<0.04) ng/mL B-Natriuretic Peptide 27 ( - 100) pg/mL Total Protein (6.4-8.9) g/dL Albumin (3.2-5.2) g/dL Globulin (2-4) g/dL Albumin/Globulin Ratio (1-3) TSH (0.34-5.60) mcIU/mL Thyroxine (T4) (6.09-12.23) mcg/mL Beta HCG, Quant mIU/mL Urine Color Yellow Urine Appearance Cloudy Urine pH 8.0 (5-9) Ur Specific [place] 1.004 L (1.010-1.030) Urine Protein Negative (Negative) Urine Ketones Negative (Negative) Urine Blood Negative (Negative) Urine Nitrate Negative (Negative) Urine Bilirubin Negative (Negative) Urine Urobilinogen Negative (Negative) Ur Leukocyte Esterase Negative (Negative) Urine Glucose Negative (Negative) Result Diagrams: 12/25/16 13:20 12/25/16 13:20 Lab Statement: Any lab studies that have been ordered have been reviewed, and results considered in the medical decision making process. - Radiology CXR Xray Interpretation: No Acute Changes Radiology Interpretation Completed By: Radiologist - EKG 1256 EKG Interpretation: NSR 67 bpm, no STEMI Chest Pain Course/Dx - Course Assessment/Plan: Patient is a 41 year-old female coming to [facility] for evaluation of sternal chest pain since yesterday. The pain radiates up her chest to the throat. Yesterday, the pain was a burning sensation, but today she feels pressure. Severity 9/10. She also reports a headache, nausea, shortness of breath. Furthermore, she has pain in her leg and twitching in her left lip. She has a history of anemia and syncope. Test results WNL except for hypochromic microcytic anemia for which the patient takes iron. Troponin is 0.00. UA is negative. CXR shows no acute pathology. In the ED course, the patient was given an ASA and omeprazole. Her symptoms have resolved. She is feeling better. She is A&Ox3. She will be discharged home to follow up with PCP. I discussed all the findings and test results with the patient. Patient was instructed to return to the emergency room immediately if any of the symptoms return or worsens. Plan of care was discussed with the patient and understands and agrees. All questions were answered at patient satisfaction. There were no further complaints or concerns. Lung exam before discharge: CTA B/L. Good air exchange. No wheezing or crackles heard. CVS: S1 and S2 present. No murmurs appreciated. Patient is alert and oriented x 3. Patient is hemodynamically stable. Patient will be discharged home with follow up PCP in the next 2-3 days - Chest Pain Differential Diagnosis/HQI/PQRI: ACS, Angina, CHF, Chest Wall, GI Disease, Lower Respiratory Infection - Diagnoses Provider Diagnoses: Atypical chest pain, GERD (gastroesophageal reflux disease) Discharge - Discharge Plan Condition: Stable Disposition: HOME Prescriptions: Omeprazole CAP* [Prilosec CAP* 20 MG] 20 mg PO BEDTIME #14 cap. Patient Education Materials: Noncardiac Chest Pain (ED), Gastroesophageal Reflux Disease (ED) Print Language: GERMAN Referrals: [facility]FERR[facility] [Outside] The documentation as recorded by the Preston hudson Billy accurately reflects the service I personally performed and the decisions made by me, Alex Winchester MD.
== END | disposition home or self-care (01) ==
LOC: ED 12:39
DX: R07.89 Other chest pain (principal); K21.9 Gastro-esophageal reflux disease without esophagitis; R51 Headache; R06.02 Shortness of breath
CPT/HCPCS: 36415; 71020; 80053; 81003; 82550; 82553; 83605; 83735; 83880; 84436; 84443; 84484; 84702; 85025; 93005; 99283; A9270-GY

== ENCOUNTER 2017-04-09 15:01 | Emergency (ER) | payer MEDICAID, OTHER ==
[2017-04-09] MEDS ORDERED: Ondansetron INJ* 2 MG/ML VIAL IV ONE (15:57)
[2017-04-09] MEDS ORDERED: Morphine INJ* 4 MG/ML 1 ML CARPUJECT IV ONE (15:57)
[2017-04-09] MEDS ORDERED: Pantoprazole IV* 40 MG IV ONE (15:57)
[2017-04-09] MEDS ORDERED: NS 0.9% 1000 ML* 1,000 ML IV ONE (15:57)
--- NOTE | 2017-04-09 16:12 | ED ---
Alethea Almanza Rebecca, scribed for Koko Villar MD on 04/09/17 at 1542 . Abdominal Pain/Female - HPI Summary HPI Summary: Pt is a 41 y/o F who presents to ED c/o diffuse abdominal pain, particularly bad in the umbilical region. Pain began last night and is currently severe, ranked 10/10. Sx aggravated by siting up and walking, alleviated by nothing. 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 Notes that her last BM was last night and it was small and hard. Prior similar episodes of pain secondary to hernia. - History of Current Complaint Chief Complaint: EDAbdPain Stated Complaint: ABD PAIN Time Seen by Provider: 04/09/17 15:30 Hx Obtained From: Patient Hx Last Menstrual Period: 10/31/16 Onset/Duration: Lasting Days - Last night, Still Present Severity Currently: Severe Pain Intensity: 10 Pain Scale Used: 0-10 Numeric Location: Diffuse, Umbilical Aggravating Factor(s): Other: - Walking, sitting up Alleviating Factor(s): Nothing Associated Signs and Symptoms: Positive: Nausea. Negative: Blood in Stool, Vomiting, Diarrhea Allergies/Adverse Reactions: Allergies Allergy/AdvReac Type Severity Reaction Status Date / Time No Known Allergies Allergy Verified 12/13/16 20:57 PMH/Surg Hx/FS Hx/Imm Hx Endocrine/Hematology History: Reports: Hx Anemia Denies: Hx Diabetes Cardiovascular History: Denies: Hx Congestive Heart Failure, Hx Hypertension History: Denies: Hx Dialysis, Hx Renal Disease Neurological History: Reports: Other Neuro Impairments/Disorders - PMHx syncope - Surgical History Surgery Procedure, Year, and Place: TUBAL /1 - Immunization History Date of Tetanus Vaccine: Unknown Infectious Disease History: No Infectious Disease History: Denies: Traveled Outside the [place] in Last 30 Days - Family History Known Family History: Positive: Other - No CVA. Negative: Cardiac Disease, Hypertension, Diabetes - Social History Alcohol Use: None Hx Substance Use: No Substance Use Type: Reports: None Hx Tobacco Use: No Smoking Status (MU): Never Smoked Tobacco Review of Systems Positive: Abdominal Pain, Nausea. Negative: Vomiting, Diarrhea Positive: other - NEGATIVE: blood in stool All Other Systems Reviewed And Are Negative: Yes Physical Exam - Summary Physical Exam Summary: The patient is well-nourished in mild distress. The skin is warm and dry and skin color reflects adequate perfusion. HEENT: The head is normocephalic and atraumatic. The pupils are equal and reactive. The conjunctivae are clear and without drainage. Nares are patent and without drainage. Mouth reveals moist mucous membranes and the throat is without erythema and exudate. The external ears are intact. The ear canals are patent and without drainage. The tympanic membranes are intact. Neck is supple with full range of motion and non-tender. Respiratory: Chest is non-tender. Lungs are clear to auscultation and breath sounds are symmetrical and equal. Cardiovascular: Hear is regular rate and rhythm. There is no murmur or rub auscultated. There is no peripheral edema and pulses are symmetrical and equal. Abdomen: The abdomen is soft and tender above her umbilicus to palpation, pulling hands away when palpating the region. There are normal bowel sounds heard in all four quadrants and there is no organomegaly palpated with no hernia palpated. Musculoskeletal: There is no back pain noted. Extremities are non-tender with full range of motion. There is good capillary refill. There is no peripheral edema or calf tenderness elicited. Neurological: Patient is alert and oriented to person, place and time. Psychiatric: The patient has an appropriate affect and does not exhibit any anxiety or depression. Triage Information Reviewed: Yes Vital Signs On Initial Exam: Initial Vitals Temp Pulse Resp BP Pulse Ox 98.8 F 71 17 115/98 100 04/09/17 15:05 04/09/17 15:05 04/09/17 15:05 04/09/17 15:05 04/09/17 15:05 Vital Signs Reviewed: Yes Diagnostics - Vital Signs Vital Signs Temp Pulse Resp BP Pulse Ox 04/09/17 15:05 98.8 F 71 17 115/98 100 - Laboratory Lab Statement: Any lab studies that have been ordered have been reviewed, and results considered in the medical decision making process. Abdominal Pain Fem Course/Dx - Course Course Of Treatment: Pt is a 41 y/o F who presents to ED c/o diffuse abdominal pain, particularly bad in the umbilical region. Pain began last night and is currently severe, ranked 10/10. Sx aggravated by siting up and walking, alleviated by nothing. 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 Notes that her last BM was last night and it was small and hard. Prior similar episodes of pain secondary to hernia. In the ED course, pt received Morphine, Zofran, Protonix and fluids. She will be signed out, pending dispo, awaiting CT Abd/pel. - Diagnoses Differential Diagnosis: Positive: Bowel Obstruction, Constipation, Diverticulitis, Pancreatitis, Peptic Ulcer Disease, Other - incarcerated hernia Provider Diagnoses: Abdominal pain Discharge - Discharge Plan Condition: Stable Disposition: OTHER Discharge Disposition Comment: Pt will be signed out, pending dispo, awaiting CT Abd/Pel Referrals: Ellie Uribe MD [Primary Care Provider] - The documentation as recorded by the Alethea hudson Rebecca accurately reflects the service I personally performed and the decisions made by me, Koko Villar MD.
[2017-04-09 17:16] LABS: Urine Bacteria Absent (Absent); Urine Bilirubin Negative (Negative); Urine Glucose Negative (Negative); Urine Nitrite Negative (Negative)
[2017-04-09 17:21] LABS: Hematocrit 37 % (35-47); Hemoglobin 12.3 g/dl (12.0-16.0); Mean Corpuscular HGB Conc 34 g/dl (31-36); Mean Corpuscular Hemoglobin 29 pg (27-31); Mean Corpuscular Volume 87 fL (80-97); Mean Platelet Volume 9 um3 (7.4-10.4); Red Blood Count 4.22 10^6/ul (4.0-5.4); Red Cell Distribution Width 15 % (10.5-15); White Blood Count 6.5 10^3/ul (3.5-10.8)
[2017-04-09 17:23] LABS: Add Diff/Slide Review? Slide Review Added; Comments Flag Yes
[2017-04-09 17:36] LABS: ALT 11 U/L (7-52); AST 15 U/L (13-39); Alkaline Phosphatase 38 U/L (34-104); Amylase 57 U/L (29-103); Anion Gap 4 mmol/L (2-11); BUN/Creatinine Ratio 13.3 (8-20); Blood Urea Nitrogen 8 mg/dL (6-24); C Reactive Protein 2.02 mg/L (< 5.00); CO2 Carbon Dioxide 28 mmol/L (22-32); Calcium 9.2 mg/dL (8.6-10.3); Chloride 106 mmol/L (101-111); EGFR African American 140.3 (>60); EGFR Non-African American 109.1 (>60); Glucose 83 mg/dL (70-100); Lipase 19 U/L (11.0-82.0); Potassium 3.7 mmol/L (3.5-5.0); Sodium 138 mmol/L (133-145)
[2017-04-09] MEDS ORDERED: Iohexol 300* (CONTRAST) 10 ML SDV IV ONE (17:39)
--- NOTE | 2017-04-09 18:26 | RAD ---
INDICATION: Abdominal pain. Hernia. COMPARISON: CT abdomen pelvis November 20, 2016 TECHNIQUE: Axial source images were obtained from the hemidiaphragms to the symphysis pubis following administration of oral and intravenous contrast. 92 mL Omnipaque 300 was utilized. Coronal and sagittal reconstructed images were acquired. Lung bases: The lung bases are clear. Liver: The liver is normal in size. There are no masses. There is no ductal dilatation. Gallbladder: There are no calcified gallstones. There is no evidence of wall thickening or pericholecystic fluid. Spleen: The spleen is normal in size. There are no masses. Pancreas: There is no focal pancreatic mass or ductal dilatation. Adrenal glands: There is no evidence of adrenal mass. Kidneys: The kidneys are normal in size and position. There are prompt nephrograms and there is prompt excretion bilaterally. There are no renal parenchymal masses. There is no evidence of nephrolithiasis. Adenopathy: There is no evidence of adenopathy by size criteria. Fluid collections: There are no free or localized fluid collections. Vessels:There are no significant atherosclerotic changes involving the aorta. There is no focal aneurysm. The iliac vessels are normal in caliber. The IVC appears normal. GI tract: There are no acute CT bowel findings. There is no obstruction. The stomach and small bowel appear normal. The lower GI tract is normal. The cecum, ileocecal valve, and terminal ileum appear normal. The appendix is visualized and appear normal. Pelvic organs: The uterus and adnexa appear normal Bladder: There are no bladder masses. Abdominal and pelvic soft tissues: There is diastases of the rectus abdominis musculature with a fat-containing ventral hernia in the supraumbilical region. There is a small fat-containing periumbilical hernia as well. The appearance unchanged,. Osseous structures: There are no acute osseous findings. Other: None IMPRESSION: SMALL, FAT-CONTAINING VENTRAL HERNIAS. NO ACUTE FINDINGS OR INTERVAL CHANGES.
[2017-04-09] MEDS ORDERED: SIMETHICONE 40 MG/0.6 ML PO ONE (18:52)
[2017-04-09 19:32] VITALS: BP 115/73
== END 2017-04-09 19:35 | disposition home or self-care (01) ==
LOC: ED 15:01
DX: R10.9 Unspecified abdominal pain (principal); R11.0 Nausea
CPT/HCPCS: 36415; 74177; 80053; 81003; 81015; 82150; 83605; 83690; 84702; 85025; 86140; 96374; 96375; 99282; A9270-GY; J2270; J2405; Q9967

== ENCOUNTER 2017-09-07 10:02 | Emergency (ER) | payer OTHER ==
[2017-09-07] MEDS ORDERED: hydrOXYzine HCL TAB* 50 MG PO ONE (10:34)
[2017-09-07] MEDS ORDERED: PrednisoLONE LIQ 3 MG/ML* 15 MG/5 ML UDC PO ONE (10:36)
[2017-09-07] MEDS ORDERED: methylPREDNISolone 125 MG* 2 ML VIAL IV ONE (10:48)
[2017-09-07 11:03] LABS: ABS Basophils 0 10^3/ul (0-0.2); ABS Eosinophils 0 10^3/ul (0-0.6); ABS Lymphocytes 1.3 10^3/ul (1.0-4.8); ABS Monocytes 0.4 10^3/ul (0-0.8); ABS Neutrophils 6.2 10^3/ul (1.5-7.7); ABS Nucleated RBC 0 10^3/ul; Eosinophil % 0.4 % (0-6); Hematocrit 38 % (35-47); Hemoglobin 12.6 g/dl (12.0-16.0); Mean Corpuscular HGB Conc 33 g/dl (31-36); Mean Corpuscular Hemoglobin 28 pg (27-31); Mean Corpuscular Volume 85 fL (80-97); Mean Platelet Volume 10 um3 (7.4-10.4); Nucleated Red Blood Cells % 0; Platelet Count 174 10^3/ul (150-450); Red Blood Count 4.48 10^6/ul (4.0-5.4); Red Cell Distribution Width 14 % (10.5-15); White Blood Count 7.9 10^3/ul (3.5-10.8)
[2017-09-07 11:19] LABS: EGFR Non-African American 85.3 (>60)
[2017-09-07] MEDS ORDERED: Iohexol 350* (CONTRAST) 500 ML MDV IV ONE (11:44)
[2017-09-07] MEDS ORDERED: Ondansetron INJ* 2 MG/ML VIAL IV ONE (11:57)
[2017-09-07] MEDS ORDERED: Al Hydrox/Mg Hydrox/Simet LIQ* 30 ML UDC PO ONE (11:57)
[2017-09-07] MEDS ORDERED: Morphine INJ* 4 MG/ML 1 ML CARPUJECT IV ONE (11:57)
[2017-09-07] MEDS ORDERED: Morphine INJ* 2 MG/ML 1 ML CARPUJECT IV ONE (12:00)
[2017-09-07] MEDS ORDERED: Morphine INJ* 2 MG/ML 1 ML CARPUJECT ONE (12:01)
--- NOTE | 2017-09-07 13:05 | RAD ---
INDICATION: Chest pain, nausea. COMPARISON: April 09, [address] and December 25, 2016 chest radiograph. TECHNIQUE: Multidetector CT images were obtained from the lung apices to the upper abdomen with 61 mL Omnipaque 350 IV contrast. Pulmonary angiogram protocol. Multiplanar reformation including with maximum intensity projection. REPORT: Aside from minimal dependent subsegmental atelectasis the lungs and pleural spaces are clear. Negative for thoracic lymphadenopathy, cardiomegaly, pericardial effusion. Unremarkable normal diameter thoracic aorta. No filling defects are identified from the main to the subsegmental pulmonary arteries to indicate presence of a pulmonary embolism. Unremarkable Limited images to the upper abdomen. Negative for fracture or suspicious thoracic osseous lesions. IMPRESSION: 1. No evidence for pulmonary embolism. 2. No acute cardiopulmonary process evident.
[2017-09-07 14:06] VITALS: BP 108/74
--- NOTE | 2017-09-25 11:28 | ED ---
HPI Chest Pain - HPI Summary HPI Summary: Patient is an otherwise healthy 42-year-old female who presents to the ED with chief complaint of chest tightness, pressure and feelings of anxiety after reaction to an unknown substance on . However, she states she was taking ibuprofen when she developed lip swelling and puffy face. She was seen in the urgent care who gave her Benadryl. She was sent here for chest pains after developing symptoms from the Benadryl. She does not have a cardiac history. She has taken ibuprofen in the past without complications. Symptoms are aggravated by nothing and relieved with nothing. Symptoms are not worse with exertion. She has never had anything like this before. She does not have an allergic history. She states nothing else in her history has changed. She denies any abdominal pain, nausea, vomiting, constipation. She denies any throat closing symptoms orders shortness of breath. - History of Current Complaint Chief Complaint: EDAllergicReaction Time Seen by Provider: 09/07/17 10:14 Hx Obtained From: Patient Hx Last Menstrual Period: 10/31/16 Onset/Duration: Started Hours Ago Timing: Constant Initial Severity: Moderate Current Severity: Moderate Pain Intensity: 1 Pain Scale Used: 0-10 Numeric Chest Pain Location: Mid Sternal Chest Pain Radiates: No Character: Sharp/Stabbing Aggravating Factor(s): Nothing Alleviating Factor(s): Nothing Associated Signs and Symptoms: Positive: Chest Pain, Anxiety, Recent Stress - Risk Factors Pulmonary Embolism Risk Factors: Negative TAD Risk Factors: Negative - Allergy/Home Medications Allergies/Adverse Reactions: Allergies Allergy/AdvReac Type Severity Reaction Status Date / Time ibuprofen Allergy Hives Verified 09/11/17 03:54 PMH/Surg Hx/FS Hx/Imm Hx Previously Healthy: Yes Endocrine/Hematology History: Reports: Hx Anemia Denies: Hx Diabetes Cardiovascular History: Denies: Hx Congestive Heart Failure, Hx Hypertension History: Denies: Hx Dialysis, Hx Renal Disease Neurological History: Reports: Other Neuro Impairments/Disorders - PMHx syncope - Surgical History Surgery Procedure, Year, and Place: TUBAL /1 , TUBAL LIGATION - Immunization History Date of Tetanus Vaccine: Unknown Hx Pertussis Vaccination: No Immunizations Up to Date: Unable to Obtain/Confirm Infectious Disease History: No Infectious Disease History: Denies: Traveled Outside the [place] in Last 30 Days - Family History Known Family History: Positive: None, Other - No CVA. Negative: Cardiac Disease, Hypertension, Diabetes Family History: Patient reports that her parents and siblings are alive and healthy. - Social History Occupation: Unemployed Lives: With Family Alcohol Use: None Hx Substance Use: No Substance Use Type: Reports: None Hx Tobacco Use: No Smoking Status (MU): Never Smoked Tobacco Review of Systems Constitutional: Negative Negative: Fever, Chills, Fatigue, Skin Diaphoresis Eyes: Negative Positive: Chest Pain Negative: Shortness Of Breath, Cough Genitourinary: Negative Positive: no symptoms reported, see HPI Musculoskeletal: Negative Neurological: Negative All Other Systems Reviewed And Are Negative: Yes Physical Exam Triage Information Reviewed: Yes Vital Signs On Initial Exam: Initial Vitals Temp Pulse Resp BP Pulse Ox 97.6 F 115 20 105/83 98 09/07/17 10:06 09/07/17 10:06 09/07/17 10:06 09/07/17 10:06 09/07/17 10:06 Vital Signs Reviewed: Yes Appearance: Positive: Well-Appearing, Well-Nourished Skin: Positive: Warm, Skin Color Reflects Adequate Perfusion Head/Face: Positive: Normal Head/Face Inspection Eyes: Positive: EOMI, DAVE, Conjunctiva Clear Neck: Positive: Supple, No Lymphadenopathy Respiratory/Lung Sounds: Positive: Clear to Auscultation, Breath Sounds Present Cardiovascular: Positive: RRR, Pulses are Symmetrical in both Upper and Lower Extremities Musculoskeletal: Positive: Strength/ROM Intact Neurological: Positive: Speech Normal Psychiatric: Positive: Affect/Mood Appropriate Diagnostics - Vital Signs Vital Signs Temp Pulse Resp BP Pulse Ox 09/07/17 14:06 99.2 F 81 18 108/74 96 09/07/17 14:00 83 19 97 09/07/17 13:56 17 108/74 09/07/17 13:00 17 09/07/17 12:00 75 13 100 09/07/17 11:31 76 16 114/76 98 09/07/17 11:00 83 15 91/66 99 09/07/17 10:30 85 13 122/75 99 09/07/17 10:21 88 19 98 09/07/17 10:19 106/69 09/07/17 10:06 97.6 F 115 20 105/83 98 - Laboratory Lab Results: Lab Results 09/07/17 09/07/17 09/07/17 Range/Units 10:49 10:49 10:49 WBC 7.9 (3.5-10.8) 10^3/ul RBC 4.48 (4.0-5.4) 10^6/ul Hgb 12.6 (12.0-16.0) g/dl Hct 38 (35-47) % MCV 85 (80-97) fL MCH 28 (27-31) pg MCHC 33 (31-36) g/dl RDW 14 (10.5-15) % Plt Count 174 (150-450) 10^3/ul MPV 10 (7.4-10.4) um3 Neut % (Auto) 77.7 (38-83) % Lymph % (Auto) 16.0 L (25-47) % [place] % (Auto) 5.7 (1-9) % Eos % (Auto) 0.4 (0-6) % Baso % (Auto) 0.2 (0-2) % Absolute Neuts (auto) 6.2 (1.5-7.7) 10^3/ul Absolute Lymphs (auto) 1.3 (1.0-4.8) 10^3/ul Absolute Monos (auto) 0.4 (0-0.8) 10^3/ul Absolute Eos (auto) 0 (0-0.6) 10^3/ul Absolute Basos (auto) 0 (0-0.2) 10^3/ul Absolute Nucleated RBC 0 10^3/ul Nucleated RBC % 0 D-Dimer, Quantitative (Less Than 230) ng/mL Sodium 138 (133-145) mmol/L Potassium 3.7 (3.5-5.0) mmol/L Chloride 105 (101-111) mmol/L Carbon Dioxide 28 (22-32) mmol/L Anion Gap 5 (2-11) mmol/L BUN 5 L (6-24) mg/dL Creatinine 0.74 (0.51-0.95) mg/dL Est GFR ( Amer) 109.6 (>60) Est GFR (Non-Af Amer) 85.3 (>60) BUN/Creatinine Ratio 6.8 L (8-20) Glucose 110 H (70-100) mg/dL Lactic Acid 1.1 (0.5-2.0) mmol/L Calcium 9.1 (8.6-10.3) mg/dL Total Bilirubin 1.30 H (0.2-1.0) mg/dL AST 13 (13-39) U/L ALT 11 (7-52) U/L Alkaline Phosphatase 44 (34-104) U/L Troponin I 0.00 (<0.04) ng/mL C-Reactive Protein 14.67 H (< 5.00) mg/L Total Protein 6.5 (6.4-8.9) g/dL Albumin 3.7 (3.2-5.2) g/dL Globulin 2.8 (2-4) g/dL Albumin/Globulin Ratio 1.3 (1-3) /05/15 Range/Units 10:49 WBC (3.5-10.8) 10^3/ul RBC (4.0-5.4) 10^6/ul Hgb (12.0-16.0) g/dl Hct (35-47) % MCV (80-97) fL MCH (27-31) pg MCHC (31-36) g/dl RDW (10.5-15) % Plt Count (150-450) 10^3/ul MPV (7.4-10.4) um3 Neut % (Auto) (38-83) % Lymph % (Auto) (25-47) % [place] % (Auto) (1-9) % Eos % (Auto) (0-6) % Baso % (Auto) (0-2) % Absolute Neuts (auto) (1.5-7.7) 10^3/ul Absolute Lymphs (auto) (1.0-4.8) 10^3/ul Absolute Monos (auto) (0-0.8) 10^3/ul Absolute Eos (auto) (0-0.6) 10^3/ul Absolute Basos (auto) (0-0.2) 10^3/ul Absolute Nucleated RBC 10^3/ul Nucleated RBC % D-Dimer, Quantitative > 1050 H (Less Than 230) ng/mL Sodium (133-145) mmol/L Potassium (3.5-5.0) mmol/L Chloride (101-111) mmol/L Carbon Dioxide (22-32) mmol/L Anion Gap (2-11) mmol/L BUN (6-24) mg/dL Creatinine (0.51-0.95) mg/dL Est GFR ( Amer) (>60) Est GFR (Non-Af Amer) (>60) BUN/Creatinine Ratio (8-20) Glucose (70-100) mg/dL Lactic Acid (0.5-2.0) mmol/L Calcium (8.6-10.3) mg/dL Total Bilirubin (0.2-1.0) mg/dL AST (13-39) U/L ALT (7-52) U/L Alkaline Phosphatase (34-104) U/L Troponin I (<0.04) ng/mL C-Reactive Protein (< 5.00) mg/L Total Protein (6.4-8.9) g/dL Albumin (3.2-5.2) g/dL Globulin (2-4) g/dL Albumin/Globulin Ratio (1-3) Result Diagrams: 09/07/17 10:49 09/07/17 10:49 Lab Statement: Any lab studies that have been ordered have been reviewed, and results considered in the medical decision making process. Chest Pain Course/Dx - Course Course Of Treatment: During the course of treatment the patient is evaluated for chest pains was likely caused by the Benadryl given to her 30 minutes ago at urgent care. She is worked up for chest pain with negative findings. Troponin 0.00. D-dimer was obtained as patient has low risk factors and was elevated at >1050. TA obtained and negative for any PE. Maalox is given as she continues to complain of midsternal chest pain. Immediately found relief after 30ml maalox. Patient is a made aware of results and she is comfortable going home at this time. There is no obvious swelling or other allergic reaction at the time of discharge. - Diagnoses Provider Diagnoses: Chest pain Discharge - Discharge Plan Condition: Stable Disposition: HOME Prescriptions: Al Hydrox/Mg Hydrox/Simet LIQ* [Maalox Plus*] 30 ml PO Q4H PRN #1 bottle PRN Reason: Pain hydrOXYzine HCL TAB* [Atarax 25 MG TAB*] 25 mg PO QID PRN #30 tab PRN Reason: Itching Omeprazole 40 mg PO DAILY #30 capsule. Patient Education Materials: Gastroesophageal Reflux Disease (ED) Referrals: Ellie Uribe MD [Primary Care Provider] - Additional Instructions: Please follow up with PCP Take Prilosec one capsule daily for 30 days Maalox up to every 4 hours as needed for epigastric pain I have also prescribed you Atarax This medication is for any itching or rash If you develop any worsening symptoms, return to the ED immediately
== END 2017-09-07 14:06 | disposition home or self-care (01) ==
LOC: ED 10:02
DX: R07.89 Other chest pain (principal)
CPT/HCPCS: 36415; 71275; 80053; 83605; 84484; 85025; 85379; 86140; 93005; 96374; 96375; 99283; A9270-GY; J2270; J2405; J2930; Q9967

== ENCOUNTER 2017-09-11 03:50 | Emergency (ER) | payer OTHER ==
[2017-09-11] MEDS ORDERED: NS 0.9% 1000 ML* 1,000 ML IV ONE (04:21)
[2017-09-11] MEDS ORDERED: Morphine INJ* 4 MG/ML 1 ML CARPUJECT IV ONE (04:21)
[2017-09-11] MEDS ORDERED: Pantoprazole IV* 40 MG IV ONE (04:21)
[2017-09-11] MEDS ORDERED: Ondansetron INJ* 2 MG/ML VIAL IV ONE (04:21)
[2017-09-11] MEDS ORDERED: Morphine INJ* 4 MG/ML 1 ML SYRINGE (NEW SYRINGE VERSION) ONE (04:29)
[2017-09-11 04:43] LABS: ABS Basophils 0 10^3/ul (0-0.2); ABS Eosinophils 0.1 10^3/ul (0-0.6); ABS Lymphocytes 2.6 10^3/ul (1.0-4.8); ABS Monocytes 0.5 10^3/ul (0-0.8); ABS Neutrophils 3.7 10^3/ul (1.5-7.7); ABS Nucleated RBC 0 10^3/ul; Eosinophil % 1.1 % (0-6); Hematocrit 39 % (35-47); Lymphocyte % 37.7 % (25-47); Mean Corpuscular HGB Conc 34 g/dl (31-36); Mean Corpuscular Hemoglobin 28 pg (27-31); Mean Corpuscular Volume 84 fL (80-97); Mean Platelet Volume 10 um3 (7.4-10.4); Nucleated Red Blood Cells % 0.2; Platelet Count 225 10^3/ul (150-450); Red Cell Distribution Width 14 % (10.5-15); White Blood Count 6.9 10^3/ul (3.5-10.8)
[2017-09-11 04:55] LABS: EGFR Non-African American 97.3 (>60)
[2017-09-11 06:01] LABS: Urine Appearance Clear; Urine Blood Negative (Negative); Urine Color Colorless; Urine Ketones Negative (Negative); Urine Protein Negative (Negative); Urine Specific Gravity 1.002 (1.010-1.030); Urine Urobilinogen Negative (Negative)
--- NOTE | 2017-09-11 07:00 | ED ---
Phoenix Almanza Thomas, scribed for Sailaja Boogie MD on 09/11/17 at 0417 . Abdominal Pain/Female - HPI Summary HPI Summary: The patient is a 42 year old female complaining of abdominal pain that began last morning. She has been having diarrhea. The patient additionally complains of a pruritic rash to her hands. The patient denies fever and vomiting. - History of Current Complaint Chief Complaint: EDAbdPain Stated Complaint: LEFT SIDED PAIN Time Seen by Provider: 09/11/17 03:59 Hx Obtained From: Patient Hx Last Menstrual Period: 10/31/16 Onset/Duration: Lasting Days - 1, Still Present Timing: Constant Severity Currently: Moderate Pain Intensity: 6 Pain Scale Used: 0-10 Numeric Location: Diffuse Aggravating Factor(s): Nothing Alleviating Factor(s): Nothing Associated Signs and Symptoms: Positive: Diarrhea. Negative: Fever, Vomiting Allergies/Adverse Reactions: Allergies Allergy/AdvReac Type Severity Reaction Status Date / Time ibuprofen Allergy Hives Verified 09/11/17 03:54 PMH/Surg Hx/FS Hx/Imm Hx Endocrine/Hematology History: Reports: Hx Anemia Denies: Hx Diabetes Cardiovascular History: Denies: Hx Congestive Heart Failure, Hx Hypertension History: Denies: Hx Dialysis, Hx Renal Disease Neurological History: Reports: Other Neuro Impairments/Disorders - PMHx syncope - Surgical History Surgery Procedure, Year, and Place: TUBAL /1 , TUBAL LIGATION - Immunization History Date of Tetanus Vaccine: Unknown Infectious Disease History: No Infectious Disease History: Denies: Traveled Outside the [place] in Last 30 Days - Family History Known Family History: Positive: Other - No CVA. Negative: Cardiac Disease, Hypertension, Diabetes Family History: Patient reports that her parents and siblings are alive and healthy. - Social History Alcohol Use: None Hx Substance Use: No Substance Use Type: Reports: None Hx Tobacco Use: No Smoking Status (MU): Never Smoked Tobacco Review of Systems Negative: Fever Positive: Abdominal Pain, Diarrhea. Negative: Vomiting All Other Systems Reviewed And Are Negative: Yes Physical Exam - Summary Physical Exam Summary: VITAL SIGNS: Reviewed. GENERAL: Patient is a well-developed and nourished FEMALE who is lying comfortable in the stretcher. Patient is not in any acute respiratory distress. HEAD AND FACE: No signs of trauma. No ecchymosis, hematomas or skull depressions. No sinus tenderness. EYES: PERRLA, EOMI x 2, No injected conjunctiva, no nystagmus. EARS: Hearing grossly intact. Ear canals and tympanic membranes are within normal limits. MOUTH: Oropharynx within normal limits. NECK: Supple, trachea is midline, no adenopathy, no JVD, no carotid bruit, no c- spine tenderness, neck with full ROM. CHEST: Symmetric, no tenderness at palpation LUNGS: Clear to auscultation bilaterally. No wheezing or crackles. CVS: Regular rate and rhythm, S1 and S2 present, no murmurs or gallops appreciated. ABDOMEN: Soft. She has diffuse abdominal tenderness. No signs of distention. No rebound no guarding, and no masses palpated. Bowel sounds are normal. EXTREMITIES: FROM in all major joints, no edema, no cyanosis or clubbing. NEURO: Alert and oriented x 3. No acute neurological deficits. Speech is normal and follows commands. SKIN: Dry and warm. She has a mild rash on both hands. Triage Information Reviewed: Yes Vital Signs On Initial Exam: Initial Vitals Temp Pulse Resp BP Pulse Ox 97.4 F 76 16 110/80 97 09/11/17 03:51 09/11/17 03:51 09/11/17 03:51 09/11/17 03:51 09/11/17 03:51 Vital Signs Reviewed: Yes Diagnostics - Vital Signs Vital Signs Temp Pulse Resp BP Pulse Ox 09/11/17 03:51 97.4 F 76 16 110/80 97 - Laboratory Result Diagrams: 09/11/17 04:24 09/11/17 04:24 Lab Statement: Any lab studies that have been ordered have been reviewed, and results considered in the medical decision making process. Abdominal Pain Fem Course/Dx - Course Course Of Treatment: The patient is a 42 year old female complaining of abdominal pain that began last morning. She has been having diarrhea. In the ED course the patient was given IV fluids, morphine, Zofran, and Protonix. At this time, the CT Abd/Pel is ordered but not yet taken. The patient will be signed out to Dr. Winchester, pending imaging, awaiting disposition. - Diagnoses Provider Diagnoses: Abdominal pain Discharge - Discharge Plan Condition: Stable Disposition: OTHER Discharge Disposition Comment: Signed out to Dr. Winchester, pending imaging awaiting disposition. Referrals: Ellie Uribe MD [Primary Care Provider] - The documentation as recorded by the Phoenix hudson Thomas accurately reflects the service I personally performed and the decisions made by me, Sailaja Boogie MD.
[2017-09-11] MEDS ORDERED: Iohexol 300* (CONTRAST) 10 ML SDV IV ONE (07:24)
--- NOTE | 2017-09-11 08:12 | RAD ---
CLINICAL HISTORY: Left-sided abdominal pain COMPARISON: Most recent comparison CT is dated April 09, 2017 TECHNIQUE: Contrast enhanced CT examination of the abdomen and pelvis from the lung bases through the initial tuberosities. The patient received 81 mL Omnipaque 300 intravenously prior to imaging.The patient received oral contrast as well prior to imaging. FINDINGS: VISUALIZED LUNG BASES: The visualized lung bases are grossly clear. There is no pleural effusion. ABDOMEN AND PELVIS: The liver, spleen, pancreas and adrenal glands are grossly normal in appearance. The gallbladder is normal. The kidneys are normal in appearance without focal mass, calcification or signs of hydronephrosis. No renal calculi identified. Neural contrast has progressed as far as the hepatic flexure. The small and large bowel are not distended. The patient's normal appendix is identified in the right lower quadrant with gas in the lumen (coronal image 41). There is no gross retroperitoneal or mesenteric lymphadenopathy. Similar to prior imaging the uterus is mildly enlarged measuring up to 4.5 x 11.6 cm in the sagittal plane and 6.7 cm transverse. The abdominal aorta and iliac arteries are normal in course and diameter. There are no sinister bone lesions. IMPRESSION: 1. No acute abnormality of the abdomen or pelvis identified that would account for the patient's current presentation. 2. Mildly enlarged uterus similar to prior CT imaging.
[2017-09-11 10:28] VITALS: BP 110/71
--- NOTE | 2017-09-11 18:38 | ED ---
Miguel Almanza Angela, scribed for Alex Winchester MD on 09/11/17 at 0717 . Progress - Progress Note Progress Note: This pt was signed out by Dr. Boogie, pending disposition, awaiting CT abdomen/ pelvis. CT abdomen/pelvis, as read by radiologist: IMPRESSION: 1. No acute abnormality of the abdomen or pelvis identified that would account for the patient's current presentation. 2. Mildly enlarged uterus similar to prior CT imaging. Dr. Winchester has reviewed this radiology report. Pt was signed out to wa by Dr. Boogie to follow up on the abdomen/pelvis CT. Abdomen/Pelvis CT: 1. No acute abnormality of the abdomen or pelvis identified that would account for the patient's current presentation. 2. Mildly enlarged uterus similar to prior CT imaging. There are no abnormalities. Therefore the pt will be discharged to home with follow up from his PCP. She will also be given a surgery referral as requested. Pt will be discharged to home, in stable condition, with a diagnosis of abdominal pain. Condition: Stable Disposition: Home Course/Dx - Diagnoses Provider Diagnoses: Abdominal pain The documentation as recorded by the Miguel hudson Angela accurately reflects the service I personally performed and the decisions made by wa, Alex Winchester MD.
== END 2017-09-11 10:25 | disposition home or self-care (01) ==
LOC: ED 03:50
DX: R10.9 Unspecified abdominal pain (principal)
CPT/HCPCS: 36415; 74177; 80053; 81003; 82150; 83690; 84702; 85025; 86140; 99283; J2270; J2405; Q9967

== ENCOUNTER 2019-03-01 15:18 | Emergency (ER) | payer OTHER ==
--- NOTE | 2019-03-01 17:33 | ED ---
Head Injury - HPI Summary HPI Summary: Pt is a 43 y/o F presenting to the ED with a chief complaint of a head injury. She states she opened the bathroom door and hit herself in the R eye. She reports edema, slightly blurred vision, and pain in her R eye. - History Of Current Complaint Chief Complaint: EDEyeProblem Stated Complaint: RT EYE INJURY PER PT Time Seen by Provider: 03/01/19 17:22 Hx Obtained From: Patient Hx Last Menstrual Period: 10/31/16 Mechanism Of Injury: Direct Blow - door Onset/Duration: Started Hours Ago, Still Present Onset of Pain: Immediate Severity Currently: Severe Severity Initially: Severe Pain Intensity: 8 Pain Scale Used: 0-10 Numeric Location of Head Injury: Other: - R eye - facial Aggravating Factor(s): Other: - touch Associated Signs And Symptoms: Visual Changes - Allergies/Home Medications Allergies/Adverse Reactions: Allergies Allergy/AdvReac Type Severity Reaction Status Date / Time No Known Allergies Allergy Verified 03/01/19 15:36 PMH/Surg Hx/FS Hx/Imm Hx Previously Healthy: Yes Endocrine/Hematology History: Reports: Hx Anemia Denies: Hx Diabetes Cardiovascular History: Denies: Hx Congestive Heart Failure, Hx Hypertension History: Denies: Hx Dialysis, Hx Renal Disease Neurological History: Reports: Other Neuro Impairments/Disorders - PMHx syncope - Surgical History Surgery Procedure, Year, and Place: TUBAL /1 , TUBAL LIGATION , abdominal surgery for hernia - Immunization History Date of Tetanus Vaccine: Unknown Infectious Disease History: No Infectious Disease History: Denies: Traveled Outside the [place] in Last 30 Days - Family History Known Family History: Negative: Cardiac Disease, Hypertension, Diabetes - Social History Alcohol Use: None Hx Substance Use: No Substance Use Type: Reports: None Hx Tobacco Use: No Smoking Status (MU): Never Smoked Tobacco Review of Systems Positive: Blurred Vision, Other - R eye pain Positive: Edema All Other Systems Reviewed And Are Negative: Yes Physical Exam - Summary Physical Exam Summary: Appearance: The patient is well-nourished in no acute distress and in no acute pain. Skin: The skin is warm and dry and skin color reflects adequate perfusion. HEENT: The head is normocephalic and atraumatic. The pupils are equal and reactive. The conjunctivae are clear and without drainage. There is edema and tenderness over the R lateral orbit. EOMI. She will not cooperate to see her fundus. Nares are patent and without drainage. Mouth reveals moist mucous membranes and the throat is without erythema and exudate. The external ears are intact. The ear canals are patent and without drainage. The tympanic membranes are intact. Neck: The neck is supple with full range of motion and non-tender. There are no carotid bruits. There is no neck vein distension. Respiratory: Chest is non-tender. Lungs are clear to auscultation and breath sounds are symmetrical and equal. Cardiovascular: Heart is regular rate and rhythm. There is no murmur or rub auscultated. There is no peripheral edema and pulses are symmetrical and equal. Abdomen: The abdomen is soft and non-tender. There are normal bowel sounds heard in all four quadrants and there is no organomegaly palpated. Musculoskeletal: There is no back tenderness noted. Extremities are non-tender with full range of motion. There is good capillary refill. There is no peripheral edema or calf tenderness elicited. Neurological: Patient is alert and oriented to person, place and time. The patient has symmetrical motor strength in all four extremities. Cranial nerves are grossly intact. Deep tendon reflexes are symmetrical and equal in all four extremities. Psychiatric: The patient has an appropriate affect and does not exhibit any anxiety or depression. Triage Information Reviewed: Yes Vital Signs On Initial Exam: Initial Vitals Temp Pulse Resp BP Pulse Ox 98.3 F 70 14 118/91 100 03/01/19 15:34 03/01/19 15:34 03/01/19 15:34 03/01/19 15:34 03/01/19 15:34 Vital Signs Reviewed: Yes Diagnostics - Vital Signs Vital Signs Temp Pulse Resp BP Pulse Ox 03/01/19 15:34 98.3 F 70 14 118/91 100 - Laboratory Lab Statement: Any lab studies that have been ordered have been reviewed, and results considered in the medical decision making process. - CT Maxillofacial CT CT Interpretation Completed By: Radiologist Summary of CT Findings: No acute posttraumatic findings. ED physician has reviewed this report. Head Injury Course/Dx Course Of Treatment: Ms. Leon hit her face on a door and came in with tenderness and swelling over her right lateral orbital area. Her extraocular muscles were intact and her vision was okay. Fundus I could not view as she would not cooperate. She seemed to be in a significant amount of pain therefore a CT was obtained which was read as negative per radiology. I recommended symptomatic treatment with ibuprofen. - Diagnoses Provider Diagnoses: Facial contusion Discharge - Sign-Out/Discharge Documenting (check all that apply): Patient Departure Patient Received Moderate/Deep Sedation with Procedure: No - Discharge Plan Condition: Stable Disposition: HOME Patient Education Materials: Facial Contusion (ED) Referrals: Ellie Uribe MD [Primary Care Provider] - Additional Instructions: Please follow up with your primary care provider within the next 2-3 days. Return to the emergency department with any new or worsening symptoms. - Billing Disposition and Condition Condition: STABLE Disposition: Home - Attestation Statements Document Initiated by Scribe: Yes Documenting Scribe: Kayleigh Schmitt Provider For Whom Abhi is Documenting (Include Credential): Jimmie Campos MD. Scribe Attestation: Kayleigh Almanza, scribed for Jimmie Campos MD. on 03/01/19 at 1858. Scribe Documentation Reviewed: Yes Provider Attestation: The documentation as recorded by the danielibKayleigh dominguez accurately reflects the service I personally performed and the decisions made by , Jimmie Campos MD. Status of Scribe Document: Viewed
[2019-03-01] MEDS ORDERED: Ibuprofen TAB* 600 MG PO ONE (18:35)
[2019-03-01 19:21] VITALS: BP 116/68
== END 2019-03-01 19:21 | disposition home or self-care (01) ==
LOC: ED 15:18
DX: S00.83XA Contusion of other part of head, initial encounter (principal); W22.8XXA Striking against or struck by other objects, initial encounter; Y92.89 Other specified places as the place of occurrence of the external cause; D64.9 Anemia, unspecified
CPT/HCPCS: 70486; 99282; A9270-GY